=== PATIENT | male | born 1965 | race Caucasian/White ===

== ENCOUNTER → 2017-04-23 | Outpatient (CLI) | payer OTHER ==
[~2017-04-23] VITALS: Ht 175.3 cm; Wt 86.2 kg
[~2017-04-23] MED LIST: CBD OIL; COZAAR 50 MG TA50 M2 PO; HYTRIN 5 M5 MG/1 CAP PO; METHYLPREDNISOLO4 MG PO; MOBIC15 MG PO; PROSCAR 5MG TABL5 MG PO; TRIUMEQ TABLET1 EACH PO; TYLENOL PM EX-1 EACH PO
--- NOTE | ~2017-04-23 | HPC ---
[facility] [place] [address] PAIN MANAGEMENT CONSULTATION Name: KATHI VASQUEZ Room #: REG [facility] MRoberta.#: [id number] Admission: 04/23/17 Attend Phys: Gustavo Ballesteros DO Discharge: Date of : 67 Report #: [id number] THIS REPORT FOR: //name// CC: ROGERIO Ballesteros DATE OF SERVICE: 04/23/2017 REFERRING PHYSICIAN: DENILSON Gamboa CHIEF COMPLAINT: Low back pain, right lower extremity pain and paresthesias. HISTORY OF PRESENT ILLNESS: As you know, the patient is a very pleasant 51-year-old male who returns today in followup visit to undergo next in the series of epidural injections under fluoroscopic guidance. The patient reports good efficacy with previous epidural injection noticing near 100% improvement in overall pain until just recently. He denies new injury or new trauma that may have led to progression of the pain. He places the pain score at 8/10, states pain is exacerbated with activities and bending, improves with epidural injections. He describes the pain as constant and sharp. He returns today requesting epidural injection under fluoroscopic guidance. ALLERGIES: ERYTHROMYCIN. CURRENT MEDICATIONS: Tylenol Extra Strength 1 tab p.o. at bedtime, Triumeq 1 tab per day, losartan 50 mg per day, finasteride 5 mg per day, Meloxicam 15 mg once a day, and Hytrin 5 mg once a day. SOCIAL HISTORY: The patient denies tobacco, alcohol, IV or illicit drug use. He is working, not receiving workmen's compensation, unaccompanied today. IMAGING: No new imaging available. PHYSICAL EXAMINATION: VITAL SIGNS: Blood pressure 130/97, pulse 108, respiratory rate 16 and unlabored, the patient is 98% on room air, height 5 feet 9 inches tall, weight 190 pounds, and BMI calculated 28. GENERAL: Well-developed, well-nourished, well-hydrated 51-year-old male, appearing stated age, placing current pain score 10/10. HEENT: Normocephalic, atraumatic. Pupils are equal, round, and reactive to light. EXTREMITIES: Show no clubbing, no cyanosis, and no edema. MUSCULOSKELETAL: Seated straight leg raising negative. Supine straight leg raising positive on the right. Zenon's test negative. Modified Gaenslen's positive for axial low back pain. Ankle clonus negative. [facility] [address] [place] [address] PAIN MANAGEMENT CONSULTATION Name: KATHI VASQUEZ Room #: REG CLI Sayra#: [id number] Admission: 04/23/17 Attend Phys: Gustavo Ballesteros DO Discharge: Date of : 67 Report #: [id number] ASSESSMENT: 1. Symptomatic lumbar radiculopathy. 2. Spinal stenosis of lumbar spine. 3. Displacement of lumbar intervertebral disk with radiculopathy. 4. Lumbosacral spondylosis with radiculopathy. 5. Lumbar degeneration. 6. Chronic intractable pain. PLAN: 1. The patient returns today in followup visit to undergo epidural injection under fluoroscopic guidance to address recurrent lumbar radicular symptoms. The patient indicates no inciting injury and no trauma that may have led to recurrence of symptoms. He returns today to undergo the epidural injection in hopes of improving pain. He has been advised risks and benefits of the procedure, states she understood and wished to proceed. 2. No medication changes were made at today's visit. The patient to continue current medical therapy as previously prescribed. 3. The patient to return to our clinic on an as needed basis for the possible next in a series of epidural injections. PROCEDURE NOTE DESCRIPTION OF PROCEDURE: L5-S1 right paramedian epidural steroid injection under fluoroscopic guidance. This is the third procedure of the first series that the patient is undergoing. After obtaining written consent, the patient was taken back to the fluoroscopy suite, placed in a prone position with pillow under the abdomen to decrease lumbar lordosis. The skin overlying the lumbosacral area was then prepped and draped in aseptic fashion. The L5-S1 vertebral interspace was then identified by AP fluoroscopy. The skin and subcutaneous tissue overlying the target site of injection was anesthetized with 3 mL 1% lidocaine. A 20-gauge 3-1/2-inch Tuohy needle was then advanced under fluoroscopic guidance towards the epidural space using a right paramedian approach. The epidural space was identified using loss of resistance to air technique. After negative aspiration for heme or cerebrospinal fluid, a total of 1 mL of Omnipaque was injected. A lumbar epidurogram was confirmed using both AP and lateral fluoroscopy. After negative aspiration for heme or cerebrospinal fluid, 5 mL of a solution containing 2 mL 40 mg per mL, 80 mg total triamcinolone, 3 mL lidocaine 1% was injected in increments. Contrast spread was noted posterior epidural space. The needle was then retracted approximately half way and needle tract flushed with 1 mL of 1% lidocaine. Needle was then removed. There were no apparent sensory or motor deficits in the lower extremity following the [facility] [address] [place] [address] PAIN MANAGEMENT CONSULTATION Name: KATHI VASQUEZ Room #: REG [facility] Huerta.#: [id number] Admission: 04/23/17 Attend Phys: Gustavo Ballesteros DO Discharge: Date of : 67 Report #: [id number] procedure. A sterile bandage was placed over the injection site. The heart rate, pulse, oximetry and blood pressure were continuously monitored after the procedure. There were no apparent complications. The patient tolerated the procedure well and was carefully escorted to the recovery room in stable condition. There were no apparent complications. After meeting discharge criteria, the patient was then discharged home. <ELECTRONICALLY SIGNED> By: Gustavo Ballesteros DO 04/30/17 [id number] Gustavo Ballesteros DO /nt
[2017-04-23 09:03] VITALS: BP 130/97
== END | disposition home or self-care (01) ==
LOC: PAIN 06:37
DX: M51.16 Intervertebral disc disorders with radiculopathy, lumbar region (principal); M48.061 Spinal stenosis, lumbar region without neurogenic claudication; M47.27 Other spondylosis with radiculopathy, lumbosacral region; G89.29 Other chronic pain; Z88.0 Allergy status to penicillin; Z79.899 Other long term (current) drug therapy